=== PATIENT | male | born 1975 | race Caucasian/White ===

== ENCOUNTER 2019-01-19 02:32 | Inpatient (IN) ==
[2019-01-19] MEDS: Nitroglycerin 0.4 MG TAB.SUBL SL PRN ×2 (02:52→02:58)
[2019-01-19 03:01] LABS: Basophils # 0.1 K/mcL (0.0-0.2); Basophils % 0.4 %; Eosinophils # 0.4 K/mcL (0.0-0.6); Eosinophils % 3.3 %; Hematocrit 43.6 % (37.5-50.1); Hemoglobin 15.1 g/dL (12.9-16.9); Immature Granulocytes % 0.3 % (0-4); Lymphocytes # 5.4 K/mcL (0.6-4.6); Lymphocytes % 40.2 %; Mean Corpuscular HGB Conc 34.6 g/dL (31.6-35.5); Mean Corpuscular Hemoglobin 30.6 pg (28.0-33.3); Mean Corpuscular Volume 88.4 fL (83.0-100.0); Mean Platelet Volume 9.1 fL (9.4-12.4); Monocytes # 0.9 K/mcL (0.0-1.3); Monocytes % 6.9 %; Neutrophils # 6.6 K/mcL (1.6-8.9); Platelet Count 348 K/mcL (140-400); Red Blood Count 4.93 M/mcL (4.19-5.50); Red Cell Distribution Width 12.8 % (11.5-14.5); Segmented Neutrophils % 48.9 %; White Blood Count 13.4 K/mcL (4.3-11.1)
[2019-01-19 03:09] LABS: Prothrombin Time 10.9 Seconds (9.4-12.1)
[2019-01-19 03:11] LABS: Activated Partial Thrombo Time 30.7 Seconds (26.0-36.0)
[2019-01-19 03:21] LABS: BUN/Creatinine Ratio 7 (6-26); Blood Urea Nitrogen 7 mg/dL (6-20); Calcium 9.3 mg/dL (8.6-10.3); Carbon Dioxide 22 mEq/L (23-29); Chloride 107 mEq/L (98-107); Glucose 132 mg/dL (70-105); Osmolality,Calculated 284 (280-300); Potassium 3.3 mEq/L (3.5-5.1); Sodium 137 mEq/L (136-145); eGFR For African Americans > 60 (> 60); eGFR For Non-African Americans > 60 (> 60)
[2019-01-19 03:29] LABS: Troponin I 0.04 ng/mL (< 0.04)
[2019-01-19] MEDS ORDERED: *HR* FentaNYL (PF) 100 MCG/2 ML VIAL IVP ONE (03:53)
[2019-01-19 03:59] LABS: Bilirubin,Urine Negative (Negative); Blood,Urine Negative (Negative); Clarity,Urine Clear (Clear); Color,Urine Yellow (Yellow); Glucose,Urine (UA) Normal (Normal); Ketones,Urine Negative (Negative); Leukocyte Esterase,Urine Negative (Negative); Nitrite,Urine Negative (Negative); PH,Urine 5.5 pH Units (5.0-8.0); Protein,Urine Negative (Neg-Trace); Specific Gravity,Urine 1.018 (1.010-1.025); Urobilinogen,Urine Normal (Normal)
[2019-01-19] MEDS ORDERED: Nitroglycerin 0.4 MG PATCH.TD24 TD STA (04:03)
[2019-01-19] MEDS ORDERED: Amiodarone Premix 150 MG/100 ML BAG IVPB ONE (04:03)
[2019-01-19 04:05] LABS: Amphetamine Screen,Urine Negative ng/mL (Cutoff=1000); Barbiturate Screen,Urine Negative ng/mL (Cutoff=200); Benzodiazepines Screen,Urine Negative ng/mL (Cutoff=200); Cannabinoid Screen,Urine Negative ng/mL (Cutoff = 50); Cocaine Screen,Urine Negative ng/mL (Cutoff= 300); Opiate Screen,Urine Negative ng/mL (Cutoff=300); Phencyclidine Screen,Urine Negative ng/mL (Cutoff=25)
[2019-01-19] MEDS ORDERED: Amiodarone Premix 360 MG/200 ML BAG IVC ONE ×2 (04:05→10:57)
[2019-01-19] MEDS ORDERED: *HR* Heparin 5,000 UNIT/ML VIAL IVP PRN ×2 (04:06)
[2019-01-19] MEDS ORDERED: *HR* Heparin 5,000 UNIT/ML VIAL IVP ONE (04:06)
[2019-01-19] MEDS ORDERED: Heparin 25,000 UNIT/250 ML D5W 25,000 UNIT/250 ML IV.SOLN IVC SCH (04:15)
[2019-01-19 04:59] LABS: Troponin I 0.13 ng/mL (< 0.04)
[2019-01-19] MEDS ORDERED: Aspirin Enteric Coated 81 MG Tablet PO SCH (09:00)
[2019-01-19] MEDS ORDERED: Amiodarone Premix 360 MG/200 ML BAG IVC SCH (11:00)
[2019-01-19] MEDS ORDERED: Heparin 1,000 UNITS/500 mL 500 ML ONE (11:41)
[2019-01-19] MEDS ORDERED: Nitroglycerin 1,000 MCG/10 ML VIAL IV ONE (11:41)
[2019-01-19] MEDS ORDERED: 0.9 % Sodium Chloride 1,000 ML ONE ×2 (11:41→11:45)
[2019-01-19] MEDS ORDERED: ISOVUE-370 200 ML INFUS..BTL ONE ×2 (11:41→12:46)
[2019-01-19] MEDS ORDERED: *HR* Heparin 10,000 UNIT/10 ML VIAL ONE (11:41)
[2019-01-19] MEDS ORDERED: *HR* FentaNYL (PF) 100 MCG/2 ML VIAL ONE (11:48)
[2019-01-19] MEDS ORDERED: *HR* Midazolam HCl 2 MG/2 ML VIAL ONE (11:48)
[2019-01-19] MEDS ORDERED: Tirofiban 12.5 MG/250ML 12.5 MG/250 ML BAG ONE (12:40)
[2019-01-19] MEDS ORDERED: *HR* Ticagrelor 90 MG TABLET ONE (13:25)
[2019-01-19] MEDS ORDERED: Tirofiban 12.5 MG/250ML 12.5 MG/250 ML BAG IVC SCH (13:30)
[2019-01-19] MEDS ORDERED: Acetaminophen 325 MG TABLET PO PRN (17:16)
[2019-01-19] MEDS ORDERED: 0.9 % Sodium Chloride 1,000 ML IVC ONE (18:16)
[2019-01-19] MEDS: *HR* Ticagrelor 90 MG TABLET PO SCH (20:11)
[2019-01-20 03:07] LABS: Hematocrit 40.4 % (37.5-50.1); Hemoglobin 14.1 g/dL (12.9-16.9); Mean Corpuscular HGB Conc 34.9 g/dL (31.6-35.5); Mean Corpuscular Hemoglobin 31.4 pg (28.0-33.3); Mean Platelet Volume 9.4 fL (9.4-12.4); Platelet Count 303 K/mcL (140-400); Red Blood Count 4.49 M/mcL (4.19-5.50); White Blood Count 15.4 K/mcL (4.3-11.1)
[2019-01-20 03:27] LABS: BUN/Creatinine Ratio 7 (6-26); Blood Urea Nitrogen 8 mg/dL (6-20); Carbon Dioxide 23 mEq/L (23-29); Chloride 108 mEq/L (98-107); Chol/HDL Ratio 6.5 (0-4.9); Glucose 99 mg/dL (70-105); Magnesium 2.1 mg/dL (1.6-2.6); Osmolality,Calculated 284 (280-300); Potassium 3.9 mEq/L (3.5-5.1); Sodium 138 mEq/L (136-145); eGFR For African Americans > 60 (> 60); eGFR For Non-African Americans > 60 (> 60)
[2019-01-20 07:11] LABS: Estimated Average Glucose 123 mg/dl
[2019-01-20] MEDS ORDERED: Perflutren Lipid Microsphere 1.3 ML in 0.9 % Sodium Chloride 8.7 ML IVP ONE (08:55)
[2019-01-20] MEDS ORDERED: Nicotine 21 MG PATCH.TD24 TD SCH (09:00)
[2019-01-20] MEDS ORDERED: Metoprolol XL (24 HR) Succ 25 MG TAB.ER.24H PO SCH (09:00)
[2019-01-20] MEDS ORDERED: Aspirin 81 MG TAB.CHEW PO SCH (09:00)
[2019-01-20] MEDS: *HR* Ticagrelor 90 MG TABLET PO SCH (09:50)
[2019-01-20 12:02] VITALS: BP 101/72
[2019-01-20] MEDS ORDERED: FLU Vac QV 19-20 (6Month+)/PF 0.5 ML SYRINGE IM ONE (12:13)
== END 2019-01-20 13:05 | disposition home or self-care (01) | DRG 247 ==
LOC: 2NNU 02:32 → EMEROOARM 02:32 → SUATTDRO 04:47 → 2NNU 05:07
PROVIDERS: ADMIT Internal Medicine; ATTEND Internal Medicine